=== PATIENT | male | born 1945 | race African-American/Black ===

== ENCOUNTER 2023-03-27 17:34 | Observation (INO) | payer OTHER, MEDICARE, BC ==
[~2023-03-27] VITALS: Ht 165.1 cm; Wt 71.7 kg
[~2023-03-27 17:34] MED LIST: AMLO5 PO; ASPI81CH PO; ATEN25 PO; ATOR80 PO; CLOP75; Coenzyme Q10100 M1 PO; LOSA25 PO; METO25ER PO
[2023-03-27 18:25] LABS: BASOPHILS ABSOLUTE AUTO 0.01 K/mm3 (0.00-0.23); BASOPHILS PERCENT AUTO 0 % (0-2); EOSINOPHILS ABSOLUTE AUTO 0.04 K/mm3 (0.00-0.68); EOSINOPHILS PERCENT AUTO 1 % (0-6); Hematocrit 20.2 % (37.0-53.0); IMMATURE GRAN ABSOLUTE AUTO 0.02 K/mm3 (0.00-0.10); IMMATURE GRAN PERCENT AUTO 0 % (0-1); LYMPHOCYTES ABSOLUTE AUTO 2.13 K/mm3 (0.84-5.20); LYMPHOCYTES PERCENT AUTO 44 % (21-46); MONOCYTES ABSOLUTE AUTO 0.45 K/mm3 (0.16-1.47); MONOCYTES PERCENT AUTO 9 % (4-13); Mean Corpuscular HGB Conc 25.7 g/dL (31.5-36.5); Mean Corpuscular Volume 66 fL (80-100); Mean Platelet Volume 10.1 fL (9.1-12.4); NEUTROPHILS ABSOLUTE AUTO 2.21 K/mm3 (1.96-9.15); NEUTROPHILS PERCENT AUTO 46 % (41-73); NRBC ABSOLUTE 0.02 K/mm3 (0.00-0.02); NRBC Auto 0.4 /100 WBC (0.0-0.2); Platelet Count 381 K/mm3 (150-400); RDW Coefficient Variation 23.2 % (11.7-14.2); RDW Standard Deviation 54.2 fL (35.1-46.3); Red Blood Cell Count 3.05 M/mm3 (4.30-5.90); White Blood Cell Count 4.86 K/mm3 (4.00-11.30)
[2023-03-27 18:40] LABS: Hemoglobin 5.2 g/dL (13.5-17.5)
[2023-03-27 18:54] LABS: Albumin, Blood 2.7 g/dL (3.4-5.0); Albumin/Globulin Ratio 0.4 (0.8-1.8); Bilirubin, Total 0.1 mg/dL (0.1-1.0); Bun/Creatinine Ratio 17.6 (12.0-20.0); Creatinine, Blood 0.85 mg/dL (0.60-1.20); Globulin, Blood 6.7 g/dL (2.2-4.0); Potassium, Blood 3.8 mmol/L (3.5-5.5); Total Protein, Blood 9.4 g/dL (6.4-8.2)
[2023-03-27 21:11] LABS: Percent Saturation 4.3 % (20.0-50.0)
[2023-03-27] MEDS ORDERED: TAMS.4ER PO (21:28)
[2023-03-27] MEDS ORDERED: OXYC10TA19 PO (21:29)
[2023-03-28] VITALS (7 sets, daily range): BP systolic 129–177; BP diastolic 62–91
[2023-03-28] LABS: Free Thyroxine 1.03 ng/dL (0.70-1.60)
[2023-03-28 00:09] LABS: Hematocrit 20.8 % (37.0-53.0); IMMATURE RETIC FRACTION 14.3 % (2.3-16.0); RETIC HGB EQUIVALENT 15.9 pg (28.20-36.60); RETICULOCYTE ABSOLUTE 0.0131 M/mm3 (0.0200-0.1100); RETICULOCYTE COUNT PERCENT 0.43 % (0.50-2.50)
[2023-03-28 00:29] LABS: Thyroid Stimulating Hormone 3.35 uIU/mL (0.360-4.800)
[2023-03-28 00:30] LABS: Hemoglobin 5.6 g/dL (13.5-17.5)
[2023-03-28] MEDS ORDERED: AMLO5 PO (01:44)
--- NOTE | 2023-03-28 02:06 | NUR ---
PT ARRIVED ON UNIT AT ABOUT 0100. AOX4, PLEASANT, COOPERATIVE WITH CARE, INDEPENDENT WITHIN ROOM, ROOM AIR. 1 UNIT OF BLOOD ADMINISTERED IN ED, 2ND UNIT RUNNING ON ARRIVAL, 3RD UNIT TO BE ADMINISTERED AFTER COMPLETION. NO COMPLAINTS OF PAIN. TELE IN PLACE WITH NO EVENTS THUS FAR. EDUCATED KNOT BUMPER LIGHT USE AND HAS USED APPROPRIATELY THUS FAR. PT DOES NOT WANT TO WEAR HOSPITAL GOWN AND PREFERS TO REMAIN IN STREET CLOTHES. DECLINED IN DEPTH SKIN ASSESSMENT. BED LOCKED IN LOWEST POSITION. CALL LIGHT LEFT WITHIN REACH.
--- NOTE | 2023-03-28 04:09 | NUR ---
SHIFT SUMMARY. PT HAS BEEN SLEEPING COMFORTABLY IN BED THROUGHOUT MOST OF MORNING SINCE ARRIVING ON UNIT. 3RD BAG OF BLOOD INFUSING NOW. NO REPORTED SYMPTOMS ASSOCIATED AND PT HAS BEEN COMFORTABLE THROUGHOUT. NO REPORTED PAIN. TELE ON WITH NO EVENTS THUS FAR. REMAINS INDEPENDENT WITHIN ROOM, SATTING WELL ON ROOM AIR, CALLS APPROPRIATELY FOR ASSISTANCE. BED LOCKED IN LOWEST POSITION. CALL LIGHT LEFT WTIHIN REACH.
[2023-03-28 08:58] LABS: BASOPHILS PERCENT AUTO 0 % (0-2); EOSINOPHILS ABSOLUTE AUTO 0.05 K/mm3 (0.00-0.68); EOSINOPHILS PERCENT AUTO 1 % (0-6); Hematocrit 26.3 % (37.0-53.0); Hemoglobin 7.4 g/dL (13.5-17.5); IMMATURE GRAN ABSOLUTE AUTO 0.02 K/mm3 (0.00-0.10); IMMATURE GRAN PERCENT AUTO 0 % (0-1); LYMPHOCYTES PERCENT AUTO 40 % (21-46); MONOCYTES PERCENT AUTO 8 % (4-13); Mean Corpuscular HGB 20.2 pg (26.0-34.0); Mean Corpuscular HGB Conc 28.1 g/dL (31.5-36.5); Mean Platelet Volume 9.6 fL (9.1-12.4); NEUTROPHILS ABSOLUTE AUTO 2.55 K/mm3 (1.96-9.15); NEUTROPHILS PERCENT AUTO 51 % (41-73); Platelet Count 279 K/mm3 (150-400); RDW Coefficient Variation 25.7 % (11.7-14.2); Red Blood Cell Count 3.67 M/mm3 (4.30-5.90); White Blood Cell Count 5.02 K/mm3 (4.00-11.30)
[2023-03-28 08:59] LABS: Mean Corpuscular Volume 72 fL (80-100)
[2023-03-28 09:17] LABS: Albumin, Blood 2.4 g/dL (3.4-5.0); Albumin/Globulin Ratio 0.4 (0.8-1.8); Bilirubin, Total 0.4 mg/dL (0.1-1.0); Bun/Creatinine Ratio 17.2 (12.0-20.0); Calcium, Blood 7.9 mg/dL (8.5-10.1); Creatinine, Blood 0.82 mg/dL (0.60-1.20); Globulin, Blood 5.9 g/dL (2.2-4.0); Potassium, Blood 4.1 mmol/L (3.5-5.5); Total Protein, Blood 8.3 g/dL (6.4-8.2)
[2023-03-28] MEDS ORDERED: Vitamin B-12100 MCG PO (12:37)
[2023-03-28] MEDS ORDERED: PANT40 PO (12:38)
[2023-03-28] MEDS ORDERED: FERSU300 PO (12:38)
--- NOTE | 2023-03-28 14:04 | NUR ---
PT HAS BEEN AOX4 AND COOPERATIVE OF CARE. NO DISTRESS NOTED AT THIS TIME. PT DID STATE HE HAD FELT A BIT DIZZY THIS AM, BUT DENIED FEELING THIS AT DISCHARE. PAPERWORK REVIEWED AND PT VERBALIZING UNDERSTADING AND EDUCATIONAL MATERIAL SENT WITH HIM. ESCORTED OUT VIA WHEELCHAIR TO [facility].
== END 2023-03-28 13:35 | disposition home or self-care (01) ==
LOC: ER 17:34 → MEDS 17:35
PROVIDERS: Student in an Organized Health Care Education/Training Program; ADMIT Internal Medicine
DX: D50.9 Iron deficiency anemia, unspecified (principal); Z88.0 Allergy status to penicillin; I10 Essential (primary) hypertension; I25.2 Old myocardial infarction; E78.5 Hyperlipidemia, unspecified
CPT/HCPCS: 36415; 36430; 80053; 82607; 82746; 83540; 83550; 84439; 84443; 85014; 85018; 85025; 85045; 86850; 86900; 86901; 86923; 93005; 93010; 96360; 96361; 96372; 96374; 99284-25; A9270; C9113; G0378; J3420; J7030; P9016